=== PATIENT | female | born 1995 | race Caucasian/White ===

== ENCOUNTER 2017-04-22 06:08 | Emergency (ER) | payer OTHER ==
[2017-04-22 06:15] VITALS: BP 113/75; PULSE 108; RESP 20; TEMP 98.6; O2SAT 97
--- NOTE | 2017-04-22 06:23 | EDPHY ---
H & P Stated Complaint: left ear pain HPI/ROS: HPI CHIEF COMPLAINT: Left ear pain HISTORY OF PRESENT ILLNESS: This patient 21-year-old female otherwise healthy no significant medical history she has been sick with a upper respiratory tract infection recently. She woke up around 530 with left ear pain. She decided come the emergency room for evaluation. She denies any fever. She has been taking Mucinex. No drainage from her ear. Denies vomiting chest pain or shortness of breath. Pain is located left ear. Past Medical History: No significant medical history Past Surgical History: No significant surgical history Social History: Denies daily use drugs alcohol tobacco products. Family History: Noncontributory ROS REVIEW OF SYSTEMS: A comprehensive 10 point review of systems is otherwise negative aside from elements mentioned in the history of present illness. Exam Constitutional appears well nontoxic triage nursing summary reviewed, vital signs reviewed, awake/alert. Eyes normal conjunctivae and sclera, EOMI, PERRLA. HENT right TM clear, left TM erythematous and bulging, normal inspection, atraumatic, moist mucus membranes, no epistaxis, neck supple/ no meningismus, no raccoon eyes. Respiratory clear to auscultation bilaterally, normal breath sounds, no respiratory distress, no wheezing. Cardiovascular rate normal, regular rhythm, no murmur, no edema, distal pulses normal. Gastrointestinal soft, non-tender, no rebound, no guarding, normal bowel sounds, no distension, no pulsatile mass. Genitourinary no CVA tenderness. Musculoskeletal no midline vertebral tenderness, full range of motion, no calf swelling, no tenderness of extremities, no meningismus, good pulses, neurovascularly intact. Skin pink, warm, & dry, no rash, skin atraumatic. Neurologic awake, alert and oriented x 3, AAOx3, moves all 4 extremities equally, motor intact, sensory intact, CN II-XII intact, normal cerebellar, normal vision, normal speech. Psychiatric normal mood/affect. Heme/Lymph/Immune no lymphadenopathy. Differential Diagnosis: Includes but is not limited to in a particular order acute otitis media, viral syndrome, upper respiratory tract infection Medical Decision Making: Plan for this patient she clinically has otitis media on exam. Will start azithromycin as she has an amoxicillin allergy. Recommend Mucinex D. Lots of fluids. Stay well-hydrated. Take Tylenol Motrin alternating of 4 to 6 hours. Understands return emergency room if she develops worsening symptoms questions concerns Source: Patient - Personal History LMP (Females 10-55): 15-21 Days Ago - Medical/Surgical History Hx Asthma: No Hx Chronic Respiratory Disease: No Hx Diabetes: No Hx Cardiac Disease: No Hx Renal Disease: No Hx Cirrhosis: No Hx Alcoholism: No Hx HIV/AIDS: No Hx Splenectomy or Spleen Trauma: No Other PMH: denies - Social History Smoking Status: Never smoked Constitutional: Initial Vital Signs Temperature (C) 37 C 04/22/17 06:11 Heart Rate 108 H 04/22/17 06:11 Respiratory Rate 20 04/22/17 06:11 Blood Pressure 113/75 04/22/17 06:11 O2 Sat (%) 97 04/22/17 06:11 Allergies/Adverse Reactions: amoxicillin Allergy (Verified 06/11/16 15:09) Penicillins Allergy (Verified 04/22/17 06:11) Home Medications: Medication Instructions Recorded Azithromycin [Zithromax] 250 mg PO DAILY #6 tab 06/11/16 AZITHROMYCIN [Z-PACK] 250 mg PO DAILY #6 tab 04/22/17 Departure - Departure Disposition: Home, Routine, Self-Care Clinical Impression: Otitis media Qualifiers: Otitis media type: suppurative Chronicity: acute Laterality: left Recurrence: not specified as recurrent Spontaneous tympanic membrane rupture: without spontaneous rupture Qualified Code(s): H66.002 - Acute suppurative otitis media without spontaneous rupture of ear drum, left ear Condition: Good Instructions: Otitis Media (ED) Additional Instructions: 1. Drink lots of fluids stay well-hydrated. 2. Alternate Tylenol Motrin for pain control every 4-6 hours. 3. Mucinex decongestant. 4. Antibiotic as prescribed. 5. Return emergency room if you have worsening symptoms questions or concerns. Referrals: HERMANN THOMAS [Other] - As per Instructions Prescriptions: AZITHROMYCIN [Z-PACK] 250 mg PO DAILY #6 tab
[2017-04-22] MEDS ORDERED: AZITHROMYCIN 250 MG TAB PO ONE (06:25)
== END 2017-04-22 06:31 | disposition home or self-care (01) ==
DX: H66.002 Acute suppurative otitis media without spontaneous rupture of ear drum, left ear (principal)